=== PATIENT | male | born 1945 | race Caucasian/White ===

== ENCOUNTER 2017-05-09 09:29 | Day surgery (SDC) | payer OTHER ==
[~2017-05-09] VITALS: Ht 182.9 cm; Wt 106.8 kg
[~2017-05-09 09:29] MED LIST: ADULT FOLDING1 EACH MC; ASPIRIN81 M2 PO; CELEBREX200 MG PO; ECOTRIN325 MG PO; FERROUS SULFAT325 MG PO; KEFLEX500 MG PO; LIPITOR40 MG PO; OFEV150 MG PO; PERCOCET 5/31 TABLET PO; SERTRALINE HCL100 MG PO; TYLENOL EXTRA500 MG PO; VALSARTAN320 MG PO; VITAMIN B12-FO1 EACH PO; VITAMIN D31000 UNIT PO
[2017-05-09 09:56] VITALS: BP 153/71
[2017-05-09 17:00] VITALS: BP 141/73
[2017-05-09 17:55] VITALS: BP 123/69
== END 2017-05-09 18:15 | disposition home or self-care (01) ==
LOC: SDC 09:29 → 2SOUTH 11:43 → EDSTATUS 11:43 → SDC 11:44
DX: M19.011 Primary osteoarthritis, right shoulder (principal); M75.101 Unspecified rotator cuff tear or rupture of right shoulder, not specified as traumatic; I10 Essential (primary) hypertension; F41.9 Anxiety disorder, unspecified; K21.9 Gastro-esophageal reflux disease without esophagitis; Z79.82 Long term (current) use of aspirin; Z86.73 Personal history of transient ischemic attack (TIA), and cerebral infarction without residual deficits
CPT/HCPCS: C1713; J0330; J0690; J1100; J2250; J2405; J2795; J3010; J7120